=== PATIENT | female | born 1955 ===

== ENCOUNTER 2017-09-21 14:10 | Outpatient (CLI) | payer OTHER | END 2017-09-21 15:05 | disposition home or self-care (01) | LOC: NUCLEAR 14:10 | DX: I87.2 Venous insufficiency (chronic) (peripheral) (principal) ==

== ENCOUNTER 2018-10-17 09:15 | Outpatient (CLI) | payer OTHER | END 2018-10-17 09:30 | disposition home or self-care (01) | LOC: LAB 09:15 | DX: N39.0 Urinary tract infection, site not specified (principal) ==

== ENCOUNTER → 2020-09-27 | Outpatient (CLI) | payer OTHER | END | disposition home or self-care (01) | LOC: TOM 11:27 | PROVIDERS: ATTEND Anesthesiology | DX: J90 Pleural effusion, not elsewhere classified (principal) ==

== ENCOUNTER 2021-08-28 10:35 | Outpatient (CLI) | payer OTHER | END 2021-08-28 10:52 | disposition home or self-care (01) | LOC: RX STUDY 10:35 | PROVIDERS: ATTEND Internal Medicine Gastroenterology | DX: R10.9 Unspecified abdominal pain (principal); R11.2 Nausea with vomiting, unspecified ==